=== PATIENT | male | born 1945 | race Caucasian/White ===

== ENCOUNTER → 2016-10-31 | Outpatient (CLI) | payer MEDICARE, BC ==
[~2016-10-31] MED LIST: ALLOPURINOL300 MG PO; ASPIRIN81 M2 PO; DESYREL50 MG PO; LIPITOR20 MG PO; LISINOPRIL20 MG PO; MEDROL DOSEPAK4 MG PO; NEURONTIN300 MG PO; NORCO 7.5-3251 EACH PO; SYNTHROID137 MCG PO
--- NOTE | ~2016-10-31 | CT55 ---
[facility] A Service of [facility] & [facility] RADIOLOGY TEXT RESULTS PATIENT: SAM OZUNA [facility] [birth year] UNIT #: [id number] AGE: [address]: Delisa Lechuga APRN SEX: M ORDER DR: [id number] [facility]. [place], [place] [address] [id number] O MR#: [id number] Acc #: [id number] NAME: SAM OZUNA : 1945 SEX: M STUDY DATE/TIME: 10/31/2016 10:50 UNIT: [facility] ROOM: STUDY DESCRIPTION: CT Chest W Con Attending Physician: Delisa Lechuga A.P.R.N. Referring Physician: Delisa Lechuga A.P.R.N. Ordering Physician: Delisa Lechuga A.P.R.N. Primary Care Physician: Delisa Lechuga A.P.R.N. MEDICAL IMAGING REPORT This report is preliminary unless electronic signature is present EXAM CT chest. INDICATIONS Abnormal chest radiograph. Pulmonary nodule. TECHNIQUE CT of the thorax utilizing 70 mL Isovue-370 IV contrast. Coronal and sagittal reconstructions were obtained. This CT exam was performed with one or more of the following radiation dose reduction techniques: automatic exposure control, adjustment of mA and/or kV according to patient size, and iterative reconstruction. COMPARISON Chest radiograph dated 10/13/[address] chest 06/20/2013. FINDINGS There is a well-circumscribed cavitary nodule in the periphery of the left upper lobe (image 19). This nodule measures 1.7 cm x 1.3 cm x 1.7 cm. There is a thin peripheral rim measuring 2-3 mm in thickness. There is mild background emphysema. The right lung is clear. No enlarged mediastinal or hilar lymph nodes. There is extensive coronary artery calcifications. No pericardial or pleural effusion. The adrenal glands are normal in appearance. There is a gallstone layering dependently in the gallbladder. No acute osseous abnormalities. IMPRESSION [facility] A Service of [facility] & [facility] RADIOLOGY TEXT RESULTS PATIENT: SAM OZUNA [facility] [birth year] UNIT #: [id number] AGE: [address]: Delisa Lechuga APRN SEX: M ORDER DR: 1. A thin-walled cavitary pulmonary nodule in the left upper lobe measuring up to 1.7 cm. Both benign and malignant etiologies should be considered. Unfortunately, given the thin wall, a PET/CT may not detect hypermetabolic tissue. Consider a short-interval followup CT scan in 3 months to further evaluate. 2. No evidence of lymphadenopathy in the chest. Dictated by... Dallas Ibrahim M.D. THIS IS AN ELECTRONICALLY VERIFIED REPORT Dallas Ibrahim M.D. at 11/01/2016 9:02 AM YOON/oneil TD: 10/31/2016 23:47 JOB #: [id number] MEDICAL IMAGING REPORT Page 1 of 1 COPY
[2016-10-31 12:35] LABS: POC - CREATININE 0.98 mg/dL (0.64-1.27); POC - GFR >60.0 mL/min (>60)
== END | disposition home or self-care (01) ==
LOC: CCAT 09:50
PROVIDERS: Nurse Practitioner
DX: R93.8 Abnormal findings on diagnostic imaging of other specified body structures (principal); R91.1 Solitary pulmonary nodule
CPT/HCPCS: 71260; 82565; Q9967

== ENCOUNTER → 2016-11-06 | Outpatient (CLI) | payer MEDICARE, BC ==
--- NOTE | ~2016-11-06 | US37 ---
[facility] A Service of [facility] & [facility] RADIOLOGY TEXT RESULTS PATIENT: SAM OZUNA LOCATION: [facility] : [birth year] UNIT #: [id number] AGE: [address]: Lucio Block MD SEX: M ORDER DR: [id number] [facility] [address] [place], [place] [address] [id number] O MR#: [id number] Acc #: [id number] NAME: SAM OZUNA : 1945 SEX: M STUDY DATE/TIME: 11/06/2016 15:57 UNIT: [facility] ROOM: STUDY DESCRIPTION: US Carotid W/Doppler Bilateral Attending Physician: Lucio Block M.D. Referring Physician: Lucio Block M.D. Ordering Physician: Lucio Block M.D. Primary Care Physician: Delisa Lechuga A.P.R.N. MEDICAL IMAGING REPORT This report is preliminary unless electronic signature is present EXAM Bilateral carotid duplex HISTORY Left carotid endarterectomy in 2006. FINDINGS Duplex imaging of the carotid arteries was performed. The right common carotid artery is patent. Qjzi-[id number]-zgghlvxc plaque is seen in the right carotid bulb, extending into the origins of the internal carotid artery. Velocity in the right common carotid is 90, internal is 80, and external is 90 cm/sec. Right ICA:CCA ratio is 0.8. On the left side, calcific plaque is seen in the left mid- common carotid artery. Internal carotid artery is patent post-endarterectomy. External carotid artery is patent. Velocity in the left common carotid artery is 111, internal is 54, and external is 261 cm/sec. Left ICA:CCA ratio is 0.4. IMPRESSION 1. Plaque with less than 50% stenosis is seen in the right internal carotid artery. 2. Normal appearance of the left internal carotid artery post-endarterectomy. 3. Significant stenosis is seen in the left external carotid artery by increased velocities. 4. Antegrade flow is seen in the right and left vertebral arteries. Dictated by..Franchesca Duarte M.D. [facility] A Service of [facility] & [facility] RADIOLOGY TEXT RESULTS PATIENT: SAM OZUNA LOCATION: [facility] : [birth year] UNIT #: [id number] AGE: [address]: Lucio Block MD SEX: M ORDER DR: THIS IS AN ELECTRONICALLY VERIFIED REPORT Demetrius Duarte M.D. at 11/14/2016 9:45 AM /chad TD: 11/06/2016 20:25 JOB #: [id number] MEDICAL IMAGING REPORT Page 1 of 1 COPY
== END | disposition home or self-care (01) ==
LOC: CNIV 15:25
DX: I65.23 Occlusion and stenosis of bilateral carotid arteries (principal); I65.21 Occlusion and stenosis of right carotid artery; Z98.890 Other specified postprocedural states
CPT/HCPCS: 93880